=== PATIENT | female | born 1965 | race Caucasian/White ===

== ENCOUNTER 2017-10-23 05:20 | Inpatient (IN) | payer BC, OTHER ==
[2017-10-16 15:03] VITALS: BMI 31.0
--- NOTE | 2017-10-16 16:13 | PAT Medication Instructions ---
Service Date Oct 16, 2017. Current Home Medication List Albuterol Hfa (Ventolin Hfa), 2 PUFFS INH Q6H PRN for RN Epinephrine (Epipen), 0.3 MG IM UD Fluoxetine (Prozac), 40 MG PO HS Loratadine (Claritin), 10 MG PO QAM Methylphenidate (Ritalin), 10 MG PO TID PRN for RN Norethindrone (Aygestin), 10 MG PO UD Tramadol (Ultram), 50 MG PO Q6H Medication Instructions For Your Scheduled Surgery -Continue as directed: Epinephrine (Epipen), 0.3 MG IM UD - Hold the following medications the morning of surgery: Loratadine (Claritin), 10 MG PO QAM Methylphenidate (Ritalin), 10 MG PO TID PRN for RN - Take the following medications the morning of surgery with a sip of water: Albuterol Hfa (Ventolin Hfa), 2 PUFFS INH Q6H PRN for RN (if needed, and bring it with you to the hospital) Tramadol (Ultram), 50 MG PO Q6H (can be taken up to four hours before surgery) - Take the following medications as scheduled the night before surgery: Albuterol Hfa (Ventolin Hfa), 2 PUFFS INH Q6H PRN for RN (if needed) Fluoxetine (Prozac), 40 MG PO HS Methylphenidate (Ritalin), 10 MG PO TID PRN for RN (if needed) Norethindrone (Aygestin), 10 MG PO UD (unless otherwise instructed by your surgeon) Tramadol (Ultram), 50 MG PO Q6H If you have any questions please call us at [phone] or [phone] or [phone]
[2017-10-16 16:19] LABS: BASO % 0.5 %; BASO ABS # 0.04 K/uL (0-0.2); EOS ABS # 0.08 K/uL (0-0.5); HEMATOCRIT 36.6 % (37-47); IG# 0.02 K/uL (0.00-0.02); LYMPH ABS # 2.63 K/uL (1.2-3.4); MEAN CELL VOLUME 82.8 fL (80-100); MEAN CORPUSCULAR HEMOGLOBIN 27.1 pg (25-34); MEAN CORPUSCULAR HGB CONC 32.8 g/dl (32-36); MEAN PLATELET VOLUME 9.5 fL (7.4-10.4); MONO % 5.3 %; MONO ABS # 0.41 K/uL (0.11-0.59); NEUT % 58.9 %; NEUT ABS # 4.55 K/uL (1.4-6.5); PLATELET COUNT 345 K/uL (130-400); RED CELL DISTRIBUTION WIDTH CV 14.5 % (11.5-14.5); RED CELL DISTRIBUTION WIDTH SD 43.8 fL (36.4-46.3); WHITE BLOOD COUNT 7.73 K/uL (4.8-10.8)
[2017-10-16 16:33] LABS: CALCIUM 8.8 mg/dl (8.5-10.1); CREATININE 0.76 mg/dl (0.60-1.20); POTASSIUM 4.5 mmol/L (3.5-5.1)
[2017-10-23] VITALS (10 sets, daily range): BP systolic 140–158; BP diastolic 74–94; PULSE 74–102; TEMP 36.4–36.9; O2SAT 94–98; Ht 165.1 cm; Wt 86.8 kg
[~2017-10-23] VITALS: Ht 165.1 cm; Wt 86.8 kg
[~2017-10-23 05:20] MED LIST: CLR10 PO; EPP3/2 IM; FLUO40CA8 PO; METH10TA4 PO; NORE5TAB5 PO; TRAM-10 PO; VNTHFA/IN INH
[2017-10-23 05:55] LABS: BASO % 0.7 %; BASO ABS # 0.05 K/uL (0-0.2); EOS % 2.4 %; EOS ABS # 0.17 K/uL (0-0.5); HEMATOCRIT 36.1 % (37-47); HEMOGLOBIN 11.9 g/dL (12.0-16.0); IG# 0.01 K/uL (0.00-0.02); LYMPH % 38.4 %; LYMPH ABS # 2.75 K/uL (1.2-3.4); MEAN CELL VOLUME 82.8 fL (80-100); MEAN CORPUSCULAR HEMOGLOBIN 27.3 pg (25-34); MEAN PLATELET VOLUME 9.5 fL (7.4-10.4); MONO % 6.1 %; MONO ABS # 0.44 K/uL (0.11-0.59); NEUT % 52.3 %; NEUT ABS # 3.75 K/uL (1.4-6.5); PLATELET COUNT 290 K/uL (130-400); RED CELL DISTRIBUTION WIDTH CV 14.4 % (11.5-14.5); RED CELL DISTRIBUTION WIDTH SD 43.7 fL (36.4-46.3); WHITE BLOOD COUNT 7.17 K/uL (4.8-10.8)
[2017-10-23] MEDS ORDERED: LACTATED RINGER'S 1000ML 1,000 ML IV SCH ×3 (06:00→11:00)
[2017-10-23] MEDS ORDERED: CEFAZOLIN 2000MG IV PUSH 15 ML IV SCH (06:00)
[2017-10-23] MEDS ORDERED: MINERAL OIL LIGHT 10 ML BTL ONE (06:35)
[2017-10-23] MEDS ORDERED: BUPIVACAINE 0.5 % 5 MG/1 ML MPF 30ML VIAL ONE (06:35)
[2017-10-23] MEDS ORDERED: METHYLENE BLUE 0.5% 10 ML VIAL ONE (06:36)
[2017-10-23] MEDS ORDERED: ROCURONIUM BROMIDE 10 MG/ML 5 ML VIAL IV ONE (06:38)
[2017-10-23] MEDS ORDERED: LIDOCAINE HCL 2% 2 ML VIAL (20MG/ML) ONE (06:38)
[2017-10-23] MEDS ORDERED: MIDAZOLAM HCL 1 MG/ML 2ML VIAL ONE (06:38)
[2017-10-23] MEDS ORDERED: FENTANYL CITRATE INJ 50 MCG/1 ML 2 ML VIAL ONE (06:38)
[2017-10-23] MEDS ORDERED: PROPOFOL IV EMULSION 10 MG/ML 20 ML VIAL IV ONE (06:38)
--- NOTE | 2017-10-23 06:49 | History & Physical Bridge Note ---
H&P Re-Evaluation Bridge Note: I have examined the patient, reviewed the History & Physical and in the interval since the performance of the History & Physical I have noted the following changes of clinical significance: No changes noted
[2017-10-23] MEDS ORDERED: DiphenhydrAMINE HCL 50 MG/ML VIAL ONE (06:52)
[2017-10-23] MEDS ORDERED: DiphenhydrAMINE HCL 50 MG/ML VIAL IV STA (06:55)
[2017-10-23] MEDS ORDERED: HYDROmorphone INJ 2 MG/ML SYR/VIAL ONE (07:23)
[2017-10-23] MEDS ORDERED: ATROPINE SULFATE 0.1 MG/ML 5ML SYR IV PRN (07:30)
[2017-10-23] MEDS ORDERED: EpHEDrine SULFATE INJ 50 MG/ML AMP IV PRN (07:30)
[2017-10-23] MEDS ORDERED: ONDANSETRON INJ 2 MG/ML 2 ML VIAL IV PRN ×2 (07:30→09:30)
[2017-10-23] MEDS ORDERED: HYDROmorphone INJ 1 MG/ML SYR IV PRN (07:30)
[2017-10-23] MEDS ORDERED: DEXAMETHASONE SOD INJ 4 MG/ML VIAL ONE (08:45)
[2017-10-23] MEDS ORDERED: ONDANSETRON INJ 2 MG/ML 2 ML VIAL ONE (08:45)
[2017-10-23] MEDS ORDERED: NEOSTIGMINE METHYLSULFATE 5 MG/5 ML SYR ONE (08:45)
[2017-10-23] MEDS ORDERED: GLYCOPYRROLATE INJ 0.2 MG/ML VIAL ONE (08:45)
--- NOTE | 2017-10-23 09:17 | [facility] Post Operative Brief Note ---
Immediate Operative Summary Operative Date Oct 23, 2017. Pre-Operative Diagnosis Heavy Menstral Bleeding; Fibroid Uterus Post-Operative Diagnosis Heavy Menstral Bleeding; Fibroid Uterus, Enlarged left ovary Procedure(s) Performed Total Laparoscopic Hysterectomy, LSO, Right Salpingectomy; Cystoscopy Surgeon Dr Jang [employer] Stamper Surgeon(s) Dr Mcgovern Estimated Blood Loss 40cc Findings Consistent with Post-Op Diagnosis Fluids (cc crystalloids) 900 Specimens A: Uterus, Cervix, Left Ovary and Left Falopian Tube B: Right Falopian Tube Drains Tatum to gravity Anesthesia Type General Complication(s) none Disposition Accompanied Pt To Recover: yes Disposition: Recovery Room / PACU
[2017-10-23] MEDS: FENTANYL CITRATE INJ 50 MCG/1 ML 2 ML VIAL IV PRN ×3 (09:29→09:39)
[2017-10-23] MEDS ORDERED: MAGNESIUM HYDROXIDE SUSP 30 ML UDC PO PRN (09:30)
[2017-10-23] MEDS ORDERED: KETOROLAC TROMETHAMINE 30 MG/ML VIAL IV. PRN (09:30)
[2017-10-23] MEDS ORDERED: METHYLPHENIDATE HCL 10 MG TAB PO PRN (09:30)
[2017-10-23] MEDS ORDERED: ALBUTEROL HFA 8 GM INHALER INH PRN (09:30)
[2017-10-23] MEDS ORDERED: BISACODYL 10 MG SUPP PR PRN (09:30)
[2017-10-23] MEDS ORDERED: SENNA 8.6 MG TAB PO PRN (09:30)
[2017-10-23] MEDS ORDERED: MTR600X PO (09:46)
[2017-10-23] MEDS ORDERED: OXYC-57 PO (09:46)
--- NOTE | 2017-10-23 09:49 | Discharge Instructions ---
Discharge Instructions Date of Service Oct 23, 2017. Admission Reason for Admission: Heavy Menstrual Bleeding, Fibroid Uterus Discharge Discharge Diagnosis / Problem: s/p total laparoscopic hysterectomy with LSO, right salpingectomy, cystosco Discharge Goals Goal(s): Routine recovery after surgery Activity Recommendations Activity Limitations: per Instructions/Follow-up section . Instructions / Follow-Up Instructions / Follow-Up POST OPERATIVE: BOWEL FUNCTION/MEDICATIONS: 1. Constipation pain and discomfort are the most common complaints 5-7 days after surgery. Points 2-6 address the things that can help. 2. Chewing gum can help stimulate the gut and help improve digestion and motility. 3. Milk of Magnesia 1-2 times per day until return of bowel function. 4. Colace is a stool softener that helps. Taking this 2-3 times per day until bowel function returns to normal is highly recommended. 5. Dulcolax is a laxative that may be used if several days have passed without a bowel movement. Alternatively Miralax may be used daily instead. 6. Drink plenty of fluids as this will also reduce constipation. 7. Narcotic pain medications will be prescribed by your physician. They are safe to use and we encourage you to use them. If you are not allergic, ibuprofen will also be prescribed. Many patients will be able to transition off of the narcotic medications to ibuprofen by postoperative day 3. ACTIVITY RECOMMENDATIONS: 1. Get plenty of rest and listen to your body. If you are tired, take a nap. 2. You may shower, but do not take a tub bath until you see your doctor at the 2 week post operative visit. 3. Absolutely NO intercourse and nothing in the vagina until you are examined by your doctor at the 6 week visit. At that visit it will be determined when such activities can be resumed. This can range from 6-12 weeks after your surgery depending on healing time. 4. The main physical activity in the first week should be walking. By the second week you can slowly increase activity. There are no limits on walking up and down stairs. 5. Do not lift more than 5-10 lbs for 4 weeks. Remember the "one-handed rule", i.e. if you can lift something with only one hand it's likely okay. 6. Minimize roller leveler like vacuuming and exercising for 4 weeks. "Overdoing it" can lead to incisions not healing, pain and vaginal bleeding , so again, listen to your body. 7. Driving can be resumed when you feel able. Do not drive within 24 hours of taking a narcotic medication. EXPECTATIONS: 1. Vaginal spotting, bleeding and discharge are common after surgery. There may even be an odor to the discharge which is often related to sutures used in the vagina. If you experience heavy vaginal bleeding, call the office number day or night [phone]. 2. Bladder discomfort is common after surgery from the catheter. This usually resolves in 1-2 weeks. 3. By the end of the 3rd or 4th week you should be feeling much better. It may take up to 6 weeks for your energy levels to return to normal. 4. Narcotic medications have side effects such as: dizziness, headache, nausea and/or vomiting. If you suspect your pain medication is causing problems, call our office and we may be able to prescribe an alternate medication. 5. The skin incisions are often covered with a liquid bandage. This will gradually peel off over time. CALL THE OFFICE IF YOU HAVE ANY OF THE FOLLOWIN. Temperature of 101 degrees or higher. 2. Severe abdominal or pelvic pain not relieved by pain medication. 3. Persistent nausea or vomiting. 4. Increased pain with urination or difficulty urinating. 5. Bright red bleeding that soaks more than 1 pad per hour. CONTACT PHONE NUMBERS: Main Office: [phone] FOLLOW-UP: Post-Operative Appointments: * Individual instructions will have been given about the timing of your first examination, but this is usually at the end of the second week home. * You will need to call the office at [phone] soon after discharge to make the appointment for your post-op check-up if it has not already been scheduled. * Additional information regarding activity, sexual intercourse and when to return to work will be given at this appointment. WE WISH YOU A SPEEDY RECOVERY! Current Hospital Diet Patient's current hospital diet: Discharge Diet Recommended Diet: Regular Diet Procedures Procedures Performed: Total Laparoscopic Hysterectomy, LSO, Right Salpingectomy; Cystoscopy Pending Studies Studies pending at discharge: no Medical Emergencies . Who to Call and When: Medical Emergencies: If at any time you feel your situation is an emergency, please call 911 immediately. . Non-Emergent Contact Non-Emergency issues call your: Guest Services Officer . . "Provider Documentation" section prepared by Thomas Jang. . [place] Drug Monitoring Program Search Results: patient reviewed within database, no issues identified
--- NOTE | 2017-10-23 10:19 | OPERATIVE REPORT ---
DATE OF OPERATION: 10/23/2017 PREOPERATIVE DIAGNOSES: 1. Heavy menstrual bleeding. 2. Fibroid uterus. POSTOPERATIVE DIAGNOSES: 1. Heavy menstrual bleeding. 2. Fibroid uterus. 3. Enlarged left ovary. OPERATIVE PROCEDURE: Total laparoscopic hysterectomy with left salpingo-oophorectomy and right salpingectomy and cystoscopy. SURGEON: Dr. Thomas Jang. FINANCIAL INSTITUTION VICE PRESIDENT: Dr. Mcgovern. ANESTHESIA: General. ESTIMATED BLOOD LOSS: 40 mL. IV FLUIDS: 900 mL crystalloids. URINE OUTPUT: 200 mL clear yellow urine. SPECIMENS: Uterus, cervix, left ovary and left fallopian tube and right fallopian tube to pathology. DRAINS: Tatum to gravity. COMPLICATIONS: None. DISPOSITION: Recovery room. OPERATIVE FINDINGS: Upon laparoscopic exam, uterus was at midline, enlarged from known fibroid uterus. There was a large pedunculated fibroid on the posterior aspect of the uterus. The left ovary was noted to be enlarged due to her continued left-sided pain. She potentially wanted it removed and therefore, a left salpingo-oophorectomy was performed. The right ovary was maintained. The uterus, cervix, left ovary and fallopian tube were removed laparoscopically along with the right fallopian tube. All specimens were then removed from the abdomen. Anesthesia was then instructed to push methylene blue. Once the vaginal cuff was then completed, a cystoscopy was performed noting no injury or suture within the bladder wall. Bilateral ureteral openings spilled urine, indicating bilateral ureters were intact. The patient tolerated the procedure well and was sent to recovery with stable vital signs. OPERATIVE PROCEDURE IN DETAIL: The patient was taken to the operating room, where general anesthesia was administered. Once anesthesia was found to be adequate, the patient was placed in dorsal lithotomy position and was prepped and draped in a manner appropriate for the procedure. A weighted speculum was then placed into the vagina and the anterior lip of the cervix was grasped with a single tooth tenaculum. A medium VCare uterine manipulator was then placed within the uterus in an anteverted fashion and was suture ligated to the cervix at the 12 o'clock and 6 o'clock positions with 0 Vicryl suture. Once the VCare was then placed, a weighted speculum was removed from the vagina and a sterile Tatum catheter was placed within the bladder and remained indwelling throughout the entire procedure. Attention was then directed towards the laparoscopic portion of the procedure. Attention was directed towards the abdomen, where 0.5% Marcaine was injected below the umbilicus. An 11-mm skin incision was made below the umbilicus in a horizontal fashion. A Veress needle was then placed within the abdomen. Normal saline was injected with no fecal content aspirated. Pneumoperitoneum was then created. The Veress needle was then removed and 11-mm trocar was then placed within the abdomen under direct laparoscopic visualization. The patient was then placed in a steep Trendelenburg position and the bowel was displaced superiorly away from the pelvis. A second 11-mm skin incision was made on the right side of the abdomen and a second 11-mm trocar was then placed within the abdomen again under direct laparoscopic visualization. A third 5-mm skin incision was made on the left side of the abdomen and a 5-mm trocar was then placed within the abdomen under direct laparoscopic visualization. Once all [address], a thorough examination of the abdomen and pelvis was then performed. It was noted that there was a large pedunculated fibroid at the posterior aspect of the uterus. There was an enlarged left ovary as well. Therefore, we decided to remove the left ovary and tube. Attention was first directed towards the right adnexa, where the right round ligament was cauterized and transected. The right uteroovarian ligament was cauterized and transected, continued inferiorly through the broad ligament. The anterior leaf of the broad ligament was and a bladder flap was created on the right side of the lower uterine segment, pushing away the bladder from the lower uterus. Attention was then directed towards the left adnexa, which likewise the left round ligament was cauterized and transected. The left infundibulopelvic ligament was cauterized and transected and continued inferiorly through the broad ligament, removing the left ovary and fallopian tube. The broad ligament was and the anterior leaf of the broad ligament was cauterized and transected across the lower uterine segment completing the bladder flap. The entire bladder was pushed away from the lower uterus. Bilateral ascending uterine arteries were cauterized and transected, continued inferiorly through the cardinal-uterosacral complex, cauterizing and transecting as we continued inferiorly. Once we were at the level of the VCare, the entire specimen was amputated from the vaginal cuff circumferentially. Once the entire specimen was transected, the uterus, cervix and left fallopian tube and ovary were removed from the vagina. A sterile glove was then placed within the vagina to maintain a pneumoperitoneum. Attention was then directed towards the right fallopian tube, which was grasped and cauterized and transected away from the right ovary, removing the entire fallopian tube. The right fallopian tube was then removed from the abdomen through the trocar and was sent to pathology along with the rest of the specimens. Attention was then directed towards the vaginal cuff, which was closed with 0 Polysorb suture with the EndoStitch in a continuous running fashion. The peritoneum was reapproximated with 0 Polysorb in continuous running fashion with the EndoStitch as well. Once the entire cuff was closed, the entire pelvis was copiously irrigated with warm saline solution, noting excellent hemostasis. At this point, the laparoscopic portion of the procedure was found to be complete. All instruments were removed from the abdomen and as much CO2 gas was allowed to percolate through open cannulas. Attention was then directed towards perineum, where the Tatum catheter was removed and the cystoscope was introduced into the bladder. A thorough examination was then performed, noting no injury or suture within the bladder wall. Bilateral ureteral openings spilled urine, indicating bilateral ureters were intact. At this point, the entire procedure was found to be complete. The cystoscope was removed from the bladder and a second sterile Tatum catheter was placed within the bladder. Attention was then directed towards the abdomen, where all 3 trocars were removed from the abdomen. The fascia of the 11-mm skin incisions were closed with 0 Vicryl suture in a [id number] interrupted fashion. All 3 skin incisions were then closed with 4-0 Monocryl in a subcuticular fashion. Excellent hemostasis was noted at all incisions. All sponge, instrument and needle counts found to be correct x2. The patient tolerated the procedure well and was sent to recovery with stable vital signs. I attest to the content of the Intraoperative Record and any orders documented therein. Any exception s are noted below.
--- NOTE | 2017-10-23 10:49 | Anesthesiology Progress Note ---
Anesthesia Post Op Note Date & Time Oct 23, 2017 at 10:49 Vital Signs Pain Intensity: 4 Vital Signs Past 12 Hours Date Time Temp Pulse Resp B/P (MAP) Pulse Ox O2 Delivery O2 Flow Rate FiO2 10/23/17 10:20 89 14 155/89 96 Nasal Cannula 2 10/23/17 10:05 85 18 142/86 96 Nasal Cannula 2 10/23/17 09:55 36.8 92 15 152/81 95 Nasal Cannula 2 10/23/17 09:45 85 19 161/66 90 Room Air 10/23/17 09:35 81 16 163/95 97 Oxymask 10 10/23/17 09:25 74 15 152/90 96 Oxymask 10 10/23/17 09:19 36.5 81 16 176/102 95 Oxymask 10 10/23/17 05:48 36.9 74 20 141/76 (97) 97 Room Air Notes Mental Status: alert / awake / arousable, participated in evaluation Pt Amnestic to Procedure: Yes Nausea / Vomiting: adequately controlled Pain: adequately controlled Airway Patency, RR, SpO2: stable & adequate BP & HR: stable & adequate Hydration State: stable & adequate Anesthetic Complications: no major complications apparent
[2017-10-23] MEDS: IBUPROFEN 600 MG TAB PO PRN ×2 (16:48→21:17)
[2017-10-23] MEDS: OXYCODONE/ACETAMINOPHEN 5-325 TAB PO PRN ×2 (16:49→21:17)
[2017-10-23 19:10] LABS: HEMATOCRIT 36.3 % (37-47); HEMOGLOBIN 11.9 g/dL (12.0-16.0)
[2017-10-23] MEDS ORDERED: FLUOXETINE HCL 20 MG CAP PO SCH (21:00)
[2017-10-24 00:15] VITALS: BP 143/80; PULSE 92; TEMP 36.9; O2SAT 97
[2017-10-24] MEDS: OXYCODONE/ACETAMINOPHEN 5-325 TAB PO PRN ×3 (01:14→09:09)
[2017-10-24] MEDS: IBUPROFEN 600 MG TAB PO PRN ×3 (01:14→09:08)
[2017-10-24 07:45] LABS: BASO % 0.3 %; BASO ABS # 0.03 K/uL (0-0.2); EOS % 0.1 %; EOS ABS # 0.01 K/uL (0-0.5); HEMATOCRIT 34.4 % (37-47); HEMOGLOBIN 11.4 g/dL (12.0-16.0); IG# 0.03 K/uL (0.00-0.02); LYMPH % 26.9 %; LYMPH ABS # 2.51 K/uL (1.2-3.4); MEAN CELL VOLUME 83.1 fL (80-100); MEAN CORPUSCULAR HEMOGLOBIN 27.5 pg (25-34); MEAN CORPUSCULAR HGB CONC 33.1 g/dl (32-36); MEAN PLATELET VOLUME 9.4 fL (7.4-10.4); MONO % 7.3 %; MONO ABS # 0.68 K/uL (0.11-0.59); NEUT % 65.1 %; NEUT ABS # 6.08 K/uL (1.4-6.5); PLATELET COUNT 268 K/uL (130-400); RED CELL DISTRIBUTION WIDTH CV 14.2 % (11.5-14.5); RED CELL DISTRIBUTION WIDTH SD 43.1 fL (36.4-46.3); WHITE BLOOD COUNT 9.34 K/uL (4.8-10.8)
[2017-10-24 07:50] VITALS: BP 135/83; PULSE 71; TEMP 36.6; O2SAT 99
[2017-10-24 08:21] LABS: CALCIUM 8.2 mg/dl (8.5-10.1); CREATININE 0.9 mg/dl (0.60-1.20)
[2017-10-24] MEDS ORDERED: LORATADINE 10 MG TAB PO SCH (09:00)
--- NOTE | 2017-10-24 09:22 | OB/GYN Progress Note ---
MANAGER SYSTEM Progress Note Date of Service: Oct 24, 2017. Patient is seen and examined. She feels well, no complaints. Pain is under control with oral meds. Ambulating without dizziness Voiding without difficulty Tolerating regular diet with out N&V Flatus + BM NEG No Vaginal Bleeding No fever/ chills/ CP/ SOB/ N&V/ Leg pain Date Time Temp Pulse Resp B/P (MAP) Pulse Ox O2 Delivery O2 Flow Rate FiO2 10/24/17 07:50 36.6 71 18 135/83 (100) 99 Room Air 10/24/17 07:50 99 Room Air 10/24/17 00:15 36.9 92 18 143/80 (101) 97 Room Air 10/24/17 00:15 Room Air 10/23/17 19:50 Room Air 10/23/17 19:50 36.8 90 20 150/82 (104) 96 Room Air 10/23/17 15:55 97 Room Air 10/23/17 13:30 36.5 97 16 142/78 (99) 96 Room Air 10/23/17 12:30 36.4 101 16 155/88 (110) 94 Room Air 10/23/17 11:30 36.5 102 16 158/94 (115) 95 Room Air 10/23/17 11:01 36.6 90 16 144/89 (107) 95 Nasal Cannula 1.0 10/23/17 10:49 98 Nasal Cannula 1.0 10/23/17 10:48 98 Nasal Cannula 1.0 10/23/17 10:30 36.9 93 15 140/74 (96) 98 Nasal Cannula 1.0 10/23/17 10:20 89 14 155/89 96 Nasal Cannula 2 10/23/17 10:05 85 18 142/86 96 Nasal Cannula 2 10/23/17 09:55 36.8 92 15 152/81 95 Nasal Cannula 2 10/23/17 09:45 85 19 161/66 90 Room Air 10/23/17 09:35 81 16 163/95 97 Oxymask 10 10/23/17 09:25 74 15 152/90 96 Oxymask 10 Last 24 Hours Test 10/23/17 19:00 10/24/17 07:37 Hemoglobin 11.9 g/dL 11.4 g/dL Hematocrit 36.3 % 34.4 % White Blood Count 9.34 K/uL Red Blood Count 4.14 M/uL Mean Corpuscular Volume 83.1 fL Mean Corpuscular Hemoglobin 27.5 pg Mean Corpuscular Hemoglobin Concent 33.1 g/dl Platelet Count 268 K/uL Mean Platelet Volume 9.4 fL Neutrophils (%) (Auto) 65.1 % Lymphocytes (%) (Auto) 26.9 % Monocytes (%) (Auto) 7.3 % Eosinophils (%) (Auto) 0.1 % Basophils (%) (Auto) 0.3 % Neutrophils # (Auto) 6.08 K/uL Lymphocytes # (Auto) 2.51 K/uL Monocytes # (Auto) 0.68 K/uL Eosinophils # (Auto) 0.01 K/uL Basophils # (Auto) 0.03 K/uL RDW Standard Deviation 43.1 fL RDW Coefficient of Variation 14.2 % Immature Granulocyte % (Auto) 0.3 % Immature Granulocyte # (Auto) 0.03 K/uL Sodium Level 137 mmol/L Potassium Level 4.0 mmol/L Chloride Level 105 mmol/L Carbon Dioxide Level 26 mmol/L Anion Gap 6.0 mmol/L Blood Urea Nitrogen 10 mg/dl Creatinine 0.90 mg/dl Est Creatinine Clear Calc Drug Dose 81.4 ml/min Estimated GFR () 86.4 Estimated GFR (Non- 74.6 BUN/Creatinine Ratio 10.6 Random Glucose 113 mg/dl Calcium Level 8.2 mg/dl PE: General: Alert, orientedx3, NAD CVS: S1S2 RRR Lungs; CTAB Abd: soft, NT, ND, BS+, fundus firm, below Umbilicus Incision: Clean, dry, intact, removed dressings and applied band aids Perineum intact, Lochia rubra minimal Ext; NT, no edema AP: 51 yo s/p TLH, pod# 1 VSS Afebrile doing well All questions were answered Instructions were given when to call D/C home , F/U IN OFFICE
[2017-10-24 10:26] VITALS: BP 135/83; PULSE 71; TEMP 36.6; O2SAT 99
== END 2017-10-24 10:25 | disposition home or self-care (01) | DRG 743 ==
LOC: C.ACU 05:20 → C.MS4N 06:00 → EEVIPCON 06:00 → ENRESERV 09:41
PROVIDERS: ADMIT Obstetrics & Gynecology; ATTEND Obstetrics & Gynecology
PROC: 0UTC4ZZ Resection of Cervix, Percutaneous Endoscopic Approach (ICD-10-PCS; principal; 2017-10-23 07:00)
PROC: 0UT74ZZ Resection of Bilateral Fallopian Tubes, Percutaneous Endoscopic Approach (ICD-10-PCS; principal; 2017-10-23 07:00)
PROC: 0UT94ZZ Resection of Uterus, Percutaneous Endoscopic Approach (ICD-10-PCS; principal; 2017-10-23 07:00)
DX: N92.0 Excessive and frequent menstruation with regular cycle (principal); D25.9 Leiomyoma of uterus, unspecified; N83.8 Other noninflammatory disorders of ovary, fallopian tube and broad ligament; J45.909 Unspecified asthma, uncomplicated; F90.9 Attention-deficit hyperactivity disorder, unspecified type; I73.00 Raynaud's syndrome without gangrene; Z87.891 Personal history of nicotine dependence; Z82.5 Family history of asthma and other chronic lower respiratory diseases; Z80.0 Family history of malignant neoplasm of digestive organs; Z80.8 Family history of malignant neoplasm of other organs or systems